=== PATIENT | female | born 1990 | race Caucasian/White ===

== ENCOUNTER 2017-04-02 20:08 | Emergency (ER) | payer OTHER ==
[2017-04-02 20:16] VITALS: RESP 16; TEMP 98.2
--- NOTE | 2017-04-02 20:40 | EDPHY ---
H & P Smoking Status: Former smoker Time Seen by Provider: 04/02/17 20:27 HPI/ROS: CHIEF COMPLAINT: Dog bite to the face HISTORY OF PRESENT ILLNESS: Patient is a 27-year-old female who presents emergency department after being bit in the face by her dog. Patient was kissing her dog when another dog touched her dog. This caused him to bite her on face. She describes the pain is minimal. Bleeding is controlled. Patient' s tetanus status is up-to-date. Her dogs have been vaccinated. REVIEW OF SYSTEMS: Negative (Dede Munoz) Past Medical/Surgical History: Noncontributory (Dede Munoz) Physical Exam: General Appearance: Alert and no distress. Head/face: Pupils equal. The patient has a 1.5 cm laceration on her right cheek. This is superficial the transverse. Patient has a 2.5nd cm laceration inferior to the 1st. This is superficial. Respiratory: No respiratory distress. Cardiac: regular rate and rhythm. Extremities: Full range of motion, normal appearing. Skin: No rashes or lesions. Neuro: Alert. Normal mood and affect. (Dede Munoz S) Constitutional: Initial Vital Signs Temperature (C) 36.8 C 04/02/17 20:12 Heart Rate 64 04/02/17 20:12 Respiratory Rate 16 04/02/17 20:12 Blood Pressure 138/85 H 04/02/17 20:12 O2 Sat (%) 97 04/02/17 20:12 O2 Delivery Mode Room Air Allergies/Adverse Reactions: cephalexin monohydrate [From Keflex] Allergy (Verified 01/06/14 15:39) penicillin G [Penicillin G] Allergy (Verified 01/06/14 15:39) Home Medications: Medication Instructions Recorded NK [No Known Home Meds] 01/06/14 Medical Decision Making Procedures: Procedure: Laceration repair 1. I was requested by Dr. Munoz to perform wound closure I explained the indications, risks and benefits for both laceration repair and anesthetic administration. Verbal consent was obtained from the patient and parent. The laceration on the right upper cheek was anesthetized using 0.5% bupivicaine without epinephrine digital nerve block. After anesthetic administered the patient was observed for a period of time and had no apparent adverse effects. The wound was cleaned, prepped, draped in normal sterile fashion and explored to its base. No foreign body seen, no foreign bodies palpated. There were no deep structures involved. The wound was repaired with 7 simple interrupted 7 0 Prolene suture. The wound repair was complex. The procedure was performed by myself. Patient has been informed that scarring will occur, although efforts have been made to minimize this. Procedure: Laceration repair 2. I was requested by Dr. Munoz to perform wound closure I explained the indications, risks and benefits for both laceration repair and anesthetic administration. Verbal consent was obtained from the patient . The laceration on the right lower cheek was anesthetized using 0.5% bupivicaine with epinephrine . After anesthetic administered the patient was observed for a period of time and had no apparent adverse effects. The wound was cleaned, prepped, draped in normal sterile fashion and explored to its base. No foreign body seen, no foreign bodies palpated. There were no deep structures involved. The wound was repaired with 3 simple interrupted 7 0 Prolene suture. The wound repair was complex. The procedure was performed by myself. Patient has been informed that scarring will occur, although efforts have been made to minimize this. (Jonny Tay) ED Course/Re-evaluation: In the emergency department I discussed the plan with the patient. I answered all her questions. She consented to have her wounds Treated. Patient was given wound care instructions. She is given warnings prior to leaving. She was started to keep her wound out of the sun. She know she is to return to the emergency department to have her sutures removed. (Dede Munoz) Differential Diagnosis: Includes laceration, foreign body, infection (Dede Munoz) Departure - Departure Disposition: Home, Routine, Self-Care Clinical Impression: Facial laceration Qualifiers: Encounter type: initial encounter Qualified Code(s): S01.81XA - Laceration without foreign body of other part of head, initial encounter Condition: Good Instructions: Facial Laceration (ED) Additional Instructions: Wound Care Follow-Up: Removal of sutures in [ 7 ] days. Suture removal is complimentary in uncomplicated cases. Infection or abnormal findings would require reevaluation by the MD. In that case, you may be billed. Referrals: RAJNI THAYER [Primary Care Provider] - As per Instructions
[2017-04-02] MEDS ORDERED: DOXYCYCLINE HYCLATE 100 MG CAP/TAB ONE (21:28)
[2017-04-02] MEDS ORDERED: DOXYCYCLINE HYCLATE 100 MG CAP/TAB PO ONE (21:29)
[2017-04-02 21:38] VITALS: BP 112/70; PULSE 68; O2SAT 96
== END 2017-04-02 21:36 | disposition home or self-care (01) ==
PROC: 0HQ1XZZ Repair Face Skin, External Approach (ICD-10-PCS; principal; 2017-04-02)
DX: S01.411A Laceration without foreign body of right cheek and temporomandibular area, initial encounter (principal); Z87.891 Personal history of nicotine dependence; W54.0XXA Bitten by dog, initial encounter; Y93.89 Activity, other specified

== ENCOUNTER 2017-12-03 23:52 | Emergency (ER) | payer OTHER ==
--- NOTE | 2017-12-03 23:58 | EDPHY ---
H & P Stated Complaint: R foot poss infection, redness/itching Time Seen by Provider: 12/03/17 23:58 HPI/ROS: HPI CHIEF COMPLAINT: Possible infection right foot. HISTORY OF PRESENT ILLNESS: Very pleasant 27-year-old female, presents emergency room she states on Sunday she was stung by a bee to the right lateral foot. She continues to have itching present. Some mild redness. Concerned given that is not went down over the past few days that is possibly infected. She denies any fever. Additionally she does report she is 4 weeks . No significant pain, no streaking up her leg. Patient states she removed the stinger earlier on Sunday. Past Medical History: Denies significant medical history Past Surgical History: Denies significant surgical history Social History: Denies drugs alcohol tobacco. Family History: Noncontributory ROS REVIEW OF SYSTEMS: 10 Systems were reviewed and negative with the exception of the elements mentioned in the history of present illness. Exam Constitutional appears well nontoxic triage nursing summary reviewed, vital signs reviewed, awake/alert. Eyes normal conjunctivae and sclera, EOMI, PERRLA. HENT normal inspection, atraumatic, moist mucus membranes, no epistaxis, neck supple/ no meningismus, no raccoon eyes. Respiratory clear to auscultation bilaterally, normal breath sounds, no respiratory distress, no wheezing. Cardiovascular rate normal, regular rhythm, no murmur, no edema, distal pulses normal. Gastrointestinal soft, non-tender, no rebound, no guarding, normal bowel sounds, no distension, no pulsatile mass. Genitourinary no CVA tenderness. Musculoskeletal no midline vertebral tenderness, full range of motion, no calf swelling, no tenderness of extremities, no meningismus, good pulses, neurovascularly intact. Skin mild redness 3 cm x 3 cm area and pruritus to the right lateral foot. Inferior to the right lateral malleolus. No significant swelling. No crepitus. No significant warmth. Does not appear like an abscess. No streaking upper leg and no significant lymphadenopathy. Neurologic awake, alert and oriented x 3, AAOx3, moves all 4 extremities equally, motor intact, sensory intact, CN II-XII intact, normal cerebellar, normal vision, normal speech. Psychiatric normal mood/affect. Heme/Lymph/Immune no lymphadenopathy. Differential Diagnosis: Includes but is not limited to in a particular order contact dermatitis, envenomation, allergic reaction, infection. Medical Decision Making: Plan for this patient recommend cool compresses, Benadryl for itching, ibuprofen for pain control. Re-evaluation: 1208: Long discussion with the patient about antibiotic choices. She has anaphylaxis to penicillins and cephalexin. She is currently 4 weeks . Will consult Ob to determine best antibiotic choice for her. Discussed abx choice with Dr. Sanders. Recommend Clinda safe in first trimester. Gave patient precautions about clinda/gi diarrhea. recommend taking it with food. Keep hand clean. Source: Patient - Personal History LMP (Females 10-55): Current Tetanus/Diphtheria Vaccine: Yes Tetanus Vaccine Date: 2012 - Medical/Surgical History Hx Asthma: No Hx Chronic Respiratory Disease: No Hx Diabetes: No Hx Cardiac Disease: No Hx Renal Disease: No Hx Cirrhosis: No Hx Alcoholism: No Hx HIV/AIDS: No Hx Splenectomy or Spleen Trauma: No Other PMH: HX: CHRONIC COUGH FROM PERTUSSIS, hypotension - Social History Smoking Status: Former smoker Constitutional: Initial Vital Signs Temperature (C) 36.6 C 12/03/17 23:53 Heart Rate 85 12/03/17 23:53 Respiratory Rate 16 12/03/17 23:53 Blood Pressure 132/87 H 12/03/17 23:53 O2 Sat (%) 99 12/03/17 23:53 O2 Delivery Mode Room Air Allergies/Adverse Reactions: cephalexin monohydrate [From Keflex] Allergy (Verified 12/03/17 23:55) penicillin G [Penicillin G] Allergy (Verified 12/03/17 23:55) Home Medications: Medication Instructions Recorded Clindamycin HCl [Clindamycin] 300 mg PO TID #21 cap 12/04/17 Departure - Departure Disposition: Home, Routine, Self-Care Clinical Impression: Insect bite Qualifiers: Encounter type: initial encounter Qualified Code(s): W57.XXXA - Bitten or stung by nonvenomous insect and other nonvenomous arthropods, initial encounter Condition: Good Instructions: Cellulitis (ED), Insect Bite or Sting (ED) Additional Instructions: 1. Cool compresses. 2. Return if worsening symptoms questions or concerns. 3. Clindamycin as prescribed with food. 4. Return if worse. Referrals: RAJNI THAYER [Primary Care Provider] - As per Instructions Prescriptions: Clindamycin HCl [Clindamycin] 300 mg PO TID #21 cap
[2017-12-04] MEDS ORDERED: CLINDAMYCIN 150 MG CAP PO ONE (00:24)
[2017-12-04 00:34] VITALS: BP 120/94
== END 2017-12-04 00:38 | disposition home or self-care (01) ==
DX: T63.441A Toxic effect of venom of bees, accidental (unintentional), initial encounter (principal); L03.115 Cellulitis of right lower limb; Y92.9 Unspecified place or not applicable